=== PATIENT | female | born 1995 | race American Indian/Alaskan Native ===

== ENCOUNTER 2018-05-21 15:11 | Emergency (ER) | payer MEDICAID ==
[2018-05-21 15:31] VITALS: BP 117/50
[2018-05-21 16:35] LABS: HCG Qualitative,Urine Negative (Negative)
[2018-05-21 16:36] LABS: Bacteria,Urine 1+ /HPF (Negative); Bilirubin,Urine NEG (Negative); Blood,Urine NEG (Negative); Color,Urine Yellow (Yellow); Mucus,Urine 3+ /HPF; Urobilinogen,Urine < 2.0 mg/dL (<2.0)
[2018-05-21] MEDS ORDERED: FLAGYL PO ONE (18:27)
[2018-05-21] MEDS ORDERED: XYLOCAINE 1% MPF 5 mL INFILTRATI ONE (18:27)
[2018-05-21] MEDS ORDERED: ZITHROMAX PO ONE (18:27)
[2018-05-21] MEDS ORDERED: ROCEPHIN IM ONE (18:27)
--- NOTE | 2018-05-21 18:35 | Emergency Department Report ---
ED Female HPI - General Chief complaint: Urogenital-Female Stated complaint: STOMACH PAINS Time Seen by Provider: 05/21/18 18:13 Source: patient Mode of arrival: Ambulatory Limitations: No Limitations - History of Present Illness Initial comments: Patient is a 22-year-old Female who is presenting with possible STDs. Patient states her boyfriend has penile discharge and she is has some lower abdominal pain since yesterday. She is denying any vaginal discharge or abnormal bleeding. Patient states is no nausea vomiting fevers chills - Related Data Previous Rx's Medication Instructions Recorded Last Taken Type Ibuprofen [Motrin] 800 mg PO Q8HR PRN #15 tablet 05/24/16 Unknown Rx Sulfamethoxazole/Trimethoprim 1 each PO BID #14 tablet 05/24/16 Unknown Rx [Bactrim DS TAB] Nitrofurantoin Monohyd/M-Cryst 100 mg PO BID #14 capsule 05/21/18 Unknown Rx [Macrobid 100 mg Capsule] Allergies Allergy/AdvReac Type Severity Reaction Status Date / Time No Known Allergies Allergy Verified 05/21/18 15:28 ED Review of Systems ROS: Stated complaint: STOMACH PAINS Other details as noted in HPI Comment: All other systems reviewed and negative ED Past Medical Hx - Past Medical History Previous Medical History?: No - Surgical History Past Surgical History?: No - Social History Smoking Status: Current Every Day Smoker Substance Use Type: Alcohol - Medications Home Medications: Home Medications Medication Instructions Recorded Confirmed Last Taken Type Ibuprofen [Motrin] 800 mg PO Q8HR PRN #15 tablet 05/24/16 Unknown Rx Sulfamethoxazole/Trimethoprim 1 each PO BID #14 tablet 05/24/16 Unknown Rx [Bactrim DS TAB] Nitrofurantoin Monohyd/M-Cryst 100 mg PO BID #14 capsule 05/21/18 Unknown Rx [Macrobid 100 mg Capsule] ED Physical Exam - General Limitations: No Limitations General appearance: alert, in no apparent distress - Head Head exam: Present: atraumatic, normocephalic - Eye Eye exam: Present: normal appearance - ENT ENT exam: Present: mucous membranes moist - Neck Neck exam: Present: normal inspection - Respiratory Respiratory exam: Present: normal lung sounds bilaterally. Absent: respiratory distress, wheezes, rales - Cardiovascular Cardiovascular Exam: Present: regular rate, normal rhythm. Absent: systolic murmur, diastolic murmur, rubs, gallop - GI/Abdominal GI/Abdominal exam: Present: soft, tenderness (mild suprapubic pain), normal bowel sounds. Absent: distended, guarding, rebound - Extremities Exam Extremities exam: Present: normal inspection - Back Exam Back exam: Present: normal inspection - Neurological Exam Neurological exam: Present: alert, oriented X3 - Psychiatric Psychiatric exam: Present: normal affect, normal mood - Skin Skin exam: Present: warm, dry, intact, normal color. Absent: rash ED Course Vital Signs 05/21/18 15:28 Temperature 98.7 F Pulse Rate 91 H Respiratory 18 Rate Blood Pressure 117/50 O2 Sat by Pulse 100 Oximetry ED Medical Decision Making - Lab Data Lab Results 05/21/18 Range/Units Unknown Urine Color Yellow (Yellow) Urine Turbidity Clear (Clear) Urine pH 5.0 (5.0-7.0) Ur Specific [place] 1.030 (1.003-1.030) Urine Protein 30 mg/dl (Negative) mg/dL Urine Glucose (UA) Neg (Negative) mg/dL Urine Ketones Neg (Negative) mg/dL Urine Blood Neg (Negative) Urine Nitrite Pos (Negative) Ur Reducing Substances Not Reportable Urine Bilirubin Neg (Negative) Urine Ictotest Not Reportable Urine Urobilinogen < 2.0 (<2.0) mg/dL Ur Leukocyte Esterase Sm (Negative) Urine WBC (Auto) 12.0 H (0.0-6.0) /HPF Urine RBC (Auto) 3.0 (0.0-6.0) /HPF U Epithel Cells (Auto) 3.0 (0-13.0) /HPF Urine Bacteria (Auto) 1+ (Negative) /HPF Urine Mucus 3+ /HPF Urine HCG, Qual Negative (Negative) - Medical Decision Making She'll be treated for possible STD. She also be treated for urinary tract infection as well patient be discharged home. Critical care attestation.: If time is entered above; I have spent that time in minutes in the direct care of this critically ill patient, excluding procedure time. ED Disposition Clinical Impression: Concern about STD in female without diagnosis Acute cystitis Qualifiers: Hematuria presence: without hematuria Qualified Code(s): N30.00 - Acute cystitis without hematuria Disposition: TO HOME OR SELFCARE Is pt being admited?: No Does the pt Need Aspirin: No Condition: Stable Instructions: Urinary Tract Infection in Women (ED) Additional Instructions: In a week please follow-up with medical records to get the results of your STD tests Referrals: PRIMARY CARE, [Primary Care Provider] - 3-5 Days
== END 2018-05-21 19:06 | disposition home or self-care (01) ==
LOC: ED 15:11
DX: N30.00 Acute cystitis without hematuria (principal); F17.200 Nicotine dependence, unspecified, uncomplicated
CPT/HCPCS: 81001; 81025; 87591; 96372; 99283; J0696

== ENCOUNTER 2020-09-08 04:22 | Emergency (ER) | payer SELFPAY ==
[2020-09-08 04:34] VITALS: BP 128/69
== END 2020-09-08 08:25 | disposition left against medical advice (07) ==
LOC: ED 04:22
DX: N89.8 Other specified noninflammatory disorders of vagina (principal); Z53.21 Procedure and treatment not carried out due to patient leaving prior to being seen by health care provider